=== PATIENT | female | born 1965 | race Hispanic/Latino ===

== ENCOUNTER 2021-05-22 16:17 | Emergency (ER) | payer OTHER | END 2021-05-22 17:54 | LOC: CSHERS 16:17 | DX: Z53.21 Procedure and treatment not carried out due to patient leaving prior to being seen by health care provider (principal) ==

== ENCOUNTER 2021-05-22 19:27 | Emergency (ER) | payer OTHER ==
[2021-05-22] MEDS ORDERED: Ketorolac Tromethamine 30 MG/ML VIAL ONE (20:43)
== END 2021-05-22 21:50 | disposition home or self-care (01) ==
LOC: CSHERS 19:27
DX: M25.512 Pain in left shoulder (principal); M25.522 Pain in left elbow; M25.561 Pain in right knee; M25.562 Pain in left knee; E11.9 Type 2 diabetes mellitus without complications; I10 Essential (primary) hypertension; J44.9 Chronic obstructive pulmonary disease, unspecified; F17.210 Nicotine dependence, cigarettes, uncomplicated; W19.XXXA Unspecified fall, initial encounter
CPT/HCPCS: 96372; J1885

== ENCOUNTER 2021-11-22 02:22 | Emergency (ER) | payer OTHER | END 2021-11-22 03:55 | disposition home or self-care (01) | LOC: CSHERS 02:22 | DX: S90.121A Contusion of right lesser toe(s) without damage to nail, initial encounter (principal); I11.0 Hypertensive heart disease with heart failure; I50.9 Heart failure, unspecified; E11.9 Type 2 diabetes mellitus without complications; J43.9 Emphysema, unspecified; F17.210 Nicotine dependence, cigarettes, uncomplicated; X58.XXXA Exposure to other specified factors, initial encounter ==

== ENCOUNTER 2022-04-15 13:02 | Outpatient (CLI) | payer OTHER | END 2022-04-15 13:03 | disposition home or self-care (01) | LOC: CSHCT 13:02 | PROVIDERS: ATTEND Otolaryngology Otolaryngic Allergy | DX: R59.1 Generalized enlarged lymph nodes (principal); M47.812 Spondylosis without myelopathy or radiculopathy, cervical region; M25.78 Osteophyte, vertebrae | CPT/HCPCS: 70491 ==

== ENCOUNTER 2022-11-21 05:17 | Emergency (ER) | payer OTHER, MEDICARE ==
[2022-11-21] MEDS ORDERED: fentaNYL 50 mcg/mL 1 mL Vial ONE (06:04)
[2022-11-21 06:31] LABS: #Eosinphils 1.1 10x3/uL (0.0-0.5); #Monocytes 0.4 10x3/uL (0.0-1.1); #Neutrophils 5.1 10x3/uL (1.5-8.4); %Basophils 0.5 % (0.0-2.0); %Eosinophils 13.4 % (0.0-6.0); %Lymphocytes 17.8 % (18.0-47.0); %Monocytes 5.2 % (0.0-10.0); %Neutrophils 62.5 % (40.0-75.0); Hematocrit 42.4 % (34.9-44.5); Hemoglobin 14.6 g/dL (12.0-15.5); Mean Corpuscular HGB CONC 34.4 g/dL (32.0-36.0); Mean Platelet Volume 10.9 fl (7.4-10.4); Platelet Count 120 10x3/uL (150-450); RBC Distribution Width 13.7 % (11.5-14.5); Red Blood Cell (RBC) Count 4.71 10x6/uL (3.90-5.03); White Blood Cell (WBC) Count 7.6 10x3/uL (3.5-10.5)
[2022-11-21 06:38] LABS: INR-International Normal Ratio 0.9; PTT 26.8 sec (22.0-33.0); Prothrombin Time 9.9 sec (9.5-12.1)
[2022-11-21 06:42] LABS: Anion Gap 15 mmol/L (10-20); BUN (Urea Nitrogen) 12 mg/dL (9.8-20.1); Calc. Creatinine Clearance 0 mL/min (70-130); Calcium 8.5 mg/dL (7.8-10.44); Carbon Dioxide 20 mmol/L (22-29); Chloride 107 mmol/L (98-107); Estimated GFR 91; Glucose 138 mg/dL (70-105); Potassium 3.8 mmol/L (3.5-5.1); Sodium 138 mmol/L (136-145)
[2022-11-21] MEDS ORDERED: Heparin 10,000 UNITS/ 10 ML VIAL SLOW IVP SCH (08:00)
== END 2022-11-21 08:07 | disposition left against medical advice (07) ==
LOC: CSHERS 05:17
DX: I77.1 Stricture of artery (principal); I11.0 Hypertensive heart disease with heart failure; I50.9 Heart failure, unspecified; E66.9 Obesity, unspecified; E11.9 Type 2 diabetes mellitus without complications; F17.210 Nicotine dependence, cigarettes, uncomplicated
CPT/HCPCS: 80048; 85025; 85610; 85730; 93923; 93971; J3010; J1644

== ENCOUNTER 2022-11-21 12:17 | Inpatient (IN) | payer OTHER ==
[2022-11-21] MEDS ORDERED: Heparin 25,000 units/D5W 500 ML ONE (12:58)
[2022-11-21] MEDS ORDERED: Heparin 10,000 UNITS/ 10 ML VIAL SLOW IVP SCH (13:15)
[2022-11-21] MEDS ORDERED: Ondansetron ODT 4 MG TAB PO PRN (13:58)
[2022-11-21] MEDS ORDERED: Nicotine 14 MG PATCH TD PRN (13:58)
[2022-11-21] MEDS ORDERED: Ondansetron PF 4 MG/2 ML Vial IVP PRN (13:58)
[2022-11-21] MEDS ORDERED: Electrolyte Replacement Protocol 1 EACH FS SCH (14:00)
[2022-11-21] MEDS ORDERED: Sodium Chloride 0.9% 1,000 ML IV SCH (14:00)
[2022-11-21] MEDS ORDERED: HYDROcodone/Acetaminophen 10/325 mg Tablet PO PRN (14:02)
[2022-11-21] MEDS ORDERED: Dextrose 5% in Water 1,000 ML IV PRN (14:02)
[2022-11-21] MEDS ORDERED: Glucagon 1 MG/ML KIT IM PRN (14:02)
[2022-11-21] MEDS ORDERED: Dextrose 50% Abboject 50 ML SYRINGE SLOW IVP PRN (14:02)
[2022-11-21] MEDS ORDERED: HumaLOG 300 UNITS/3 ML VIAL SC PRN ×2 (14:02)
[2022-11-21] MEDS ORDERED: Docusate 100 MG CAP PO PRN (14:07)
[2022-11-21] MEDS ORDERED: Ventolin HFA Inhaler 60 PUFF INHALER INH PRN (14:07)
[2022-11-21 15:08] VITALS: BMI 33.7
[2022-11-21] MEDS: fentaNYL 50 mcg/mL 1 mL Vial SLOW IVP PRN ×2 (15:25→23:39)
[2022-11-21] MEDS ORDERED: FLU VACC QS2023-24(6MOS UP)/PF 60 MCG/0.5 ML SYRINGE IM ONE (18:15)
[2022-11-21] MEDS ORDERED: Communication Order-Pharmacy FS SCH (19:00)
[2022-11-21 20:01] LABS: INR-International Normal Ratio 0.9; PTT 35.3 sec (22.0-33.0); Prothrombin Time 10.2 sec (9.5-12.1)
[2022-11-21] MEDS ORDERED: Atorvastatin Calcium 20 MG TAB PO SCH (21:00)
[2022-11-21] MEDS ORDERED: Isosorbide Mononitrate 30 MG ER.TAB PO SCH (21:00)
[2022-11-21] MEDS: Pregabalin 75 MG CAP PO SCH (21:20)
[2022-11-21] MEDS: TICAGRELOR 90 MG TABLET PO SCH (21:20)
[2022-11-21] MEDS: Famotidine 20 MG TAB PO SCH (21:20)
[2022-11-22] MEDS ORDERED: Heparin 25,000 units/D5W 500 ML IVPB SCH (00:15)
[2022-11-22] MEDS ORDERED: Heparin 10,000 UNITS/ 10 ML VIAL SLOW IVP SCH ×2 (00:15→05:30)
[2022-11-22 00:33] LABS: Hematocrit 41.4 % (34.9-44.5); Hemoglobin 14.2 g/dL (12.0-15.5); Platelet Count 124 10x3/uL (150-450)
[2022-11-22 04:53] LABS: #Eosinphils 0.9 10x3/uL (0.0-0.5); #Monocytes 0.7 10x3/uL (0.0-1.1); #Neutrophils 4.9 10x3/uL (1.5-8.4); %Basophils 0.5 % (0.0-2.0); %Eosinophils 10.5 % (0.0-6.0); %Lymphocytes 22.1 % (18.0-47.0); %Monocytes 7.8 % (0.0-10.0); %Neutrophils 57.8 % (40.0-75.0); Hematocrit 41.2 % (34.9-44.5); Hemoglobin 13.9 g/dL (12.0-15.5); Mean Corpuscular HGB CONC 33.7 g/dL (32.0-36.0); Mean Corpuscular Hemoglobin 30.3 pg (27.0-33.0); Mean Platelet Volume 10.7 fl (7.4-10.4); Platelet Count 122 10x3/uL (150-450); RBC Distribution Width 13.7 % (11.5-14.5); Red Blood Cell (RBC) Count 4.58 10x6/uL (3.90-5.03); White Blood Cell (WBC) Count 8.5 10x3/uL (3.5-10.5)
[2022-11-22 04:57] LABS: ALT (SGPT) 32 U/L (8-55); AST (SGOT) 51 U/L (5-34); Albumin 3.4 g/dL (3.5-5.0); Alkaline Phosphatase 76 U/L (40-110); Anion Gap 14 mmol/L (10-20); BUN (Urea Nitrogen) 8 mg/dL (9.8-20.1); Bilirubin, Total 0.5 mg/dL (0.2-1.2); Calc. Creatinine Clearance 139 mL/min (70-130); Calcium 8.5 mg/dL (7.8-10.44); Carbon Dioxide 21 mmol/L (22-29); Chloride 109 mmol/L (98-107); Estimated GFR 102; Globulin 2.6 g/dL (2.4-3.5); Glucose 105 mg/dL (70-105); Magnesium 2.3 mg/dL (1.6-2.6); Potassium 3.4 mmol/L (3.5-5.1); Sodium 141 mmol/L (136-145)
[2022-11-22] MEDS ORDERED: Heparin 25,000 units/D5W 500 ML IV SCH (05:30)
[2022-11-22] MEDS ORDERED: hydrALAZINE 20 MG/ML VIAL SLOW IVP PRN (05:48)
[2022-11-22] MEDS ORDERED: Potassium Chloride 20 MEQ TAB PO SCH (06:00)
[2022-11-22] MEDS: Pregabalin 75 MG CAP PO SCH (08:10)
[2022-11-22] MEDS: Famotidine 20 MG TAB PO SCH (08:10)
[2022-11-22] MEDS: TICAGRELOR 90 MG TABLET PO SCH (08:11)
[2022-11-22] MEDS ORDERED: Bivalirudin 250 MG VIAL ONE (08:32)
[2022-11-22] MEDS ORDERED: Lidocaine 1% (PF) 30 ML VIAL ONE (08:32)
[2022-11-22] MEDS ORDERED: Midazolam HCl 2 mg/2 ml Vial ONE ×2 (08:32→09:34)
[2022-11-22] MEDS ORDERED: fentaNYL 50 mcg/mL 1 mL Vial ONE ×2 (08:32→09:34)
[2022-11-22] MEDS ORDERED: Aspirin 81 mg Enteric Coated Tablet PO SCH (09:00)
[2022-11-22] MEDS ORDERED: TICAGRELOR 90 MG TABLET ONE (09:15)
[2022-11-22] MEDS ORDERED: Heparin 10,000 UNITS/ 10 ML VIAL ONE (09:36)
[2022-11-22] MEDS ORDERED: Sodium Chloride 0.9% 1,000 ML IV SCH (11:45)
[2022-11-22] MEDS ORDERED: HYDROcodone/Acetaminophen 10/325 mg Tablet PO PRN (13:15)
[2022-11-22 13:17] VITALS: BP 144/75; TEMP 97.8
[2022-11-22] MEDS ORDERED: Iopamidol 300 61% 100 ML VIAL FS ONE (13:43)
[2022-11-22] MEDS ORDERED: Rivaroxaban 2.5 MG TAB PO SCH ×2 (21:00)
== END 2022-11-22 15:13 | disposition home or self-care (01) | DRG 271 ==
LOC: CSHERS 12:17 → CSHTELE 13:35
PROVIDERS: ADMIT Internal Medicine; ATTEND Internal Medicine
PROC: B41D1ZZ Fluoroscopy of Aorta and Bilateral Lower Extremity Arteries using Low Osmolar Contrast (ICD-10-PCS; principal; 2022-11-22)
PROC: 04CL3ZZ Extirpation of Matter from Left Femoral Artery, Percutaneous Approach (ICD-10-PCS; 2022-11-22)
PROC: 047N3ZZ Dilation of Left Popliteal Artery, Percutaneous Approach (ICD-10-PCS; 2022-11-22)
PROC: 047S3ZZ Dilation of Left Posterior Tibial Artery, Percutaneous Approach (ICD-10-PCS; 2022-11-22)
PROC: 047L3ZZ Dilation of Left Femoral Artery, Percutaneous Approach (ICD-10-PCS; 2022-11-22)
PROC: 047L3DZ Dilation of Left Femoral Artery with Intraluminal Device, Percutaneous Approach (ICD-10-PCS; 2022-11-22)
PROC: B44GZZ3 Ultrasonography of Left Lower Extremity Arteries, Intravascular (ICD-10-PCS; 2022-11-22)
DX: T82.856A Stenosis of peripheral vascular stent, initial encounter (principal); I50.22 Chronic systolic (congestive) heart failure; E11.51 Type 2 diabetes mellitus with diabetic peripheral angiopathy without gangrene; I25.10 Atherosclerotic heart disease of native coronary artery without angina pectoris; F17.210 Nicotine dependence, cigarettes, uncomplicated; I11.0 Hypertensive heart disease with heart failure; I50.9 Heart failure, unspecified; F41.9 Anxiety disorder, unspecified; K21.9 Gastro-esophageal reflux disease without esophagitis; E11.40 Type 2 diabetes mellitus with diabetic neuropathy, unspecified; E78.1 Pure hyperglyceridemia; I25.5 Ischemic cardiomyopathy; E87.6 Hypokalemia; J44.9 Chronic obstructive pulmonary disease, unspecified; Y83.8 Other surgical procedures as the cause of abnormal reaction of the patient, or of later complication, without mention of misadventure at the time of the procedure; Z88.2 Allergy status to sulfonamides; Z88.5 Allergy status to narcotic agent; Z98.890 Other specified postprocedural states; Z90.710 Acquired absence of both cervix and uterus; Z95.820 Peripheral vascular angioplasty status with implants and grafts; Z90.49 Acquired absence of other specified parts of digestive tract; Z82.49 Family history of ischemic heart disease and other diseases of the circulatory system; Z71.6 Tobacco abuse counseling; Z83.3 Family history of diabetes mellitus; I25.2 Old myocardial infarction; Z79.899 Other long term (current) drug therapy; Z79.82 Long term (current) use of aspirin; Z79.84 Long term (current) use of oral hypoglycemic drugs; Z88.6 Allergy status to analgesic agent; I77.1 Stricture of artery; E66.9 Obesity, unspecified
CPT/HCPCS: 36415; 36416; 37184; 37224; 37228; 75710; 75736; 80048; 80053; 83735; 85025; 85347; 85610; 85730; 93923; 94760; 96365; 96374; 99152; 99153; C1725; C1753; C1757; C1760; C1769; C1876; C1887; J0360; J0583; J1644; J2001; J2250; J3010; J7050

== ENCOUNTER 2023-11-20 02:21 | Emergency (ER) | payer OTHER ==
[2023-11-20] MEDS ORDERED: Dexamethasone 10 MG/ML VIAL ONE (04:17)
[2023-11-20] MEDS ORDERED: Ibuprofen 200 MG TAB ONE (04:17)
[2023-11-20] MEDS ORDERED: Methocarbamol 500 MG TAB ONE (04:17)
== END 2023-11-20 05:46 | disposition left against medical advice (07) ==
LOC: CSHERS 02:21
DX: M54.31 Sciatica, right side (principal); E66.9 Obesity, unspecified; J42 Unspecified chronic bronchitis; J43.9 Emphysema, unspecified; I11.0 Hypertensive heart disease with heart failure; I50.9 Heart failure, unspecified; E11.9 Type 2 diabetes mellitus without complications; F17.210 Nicotine dependence, cigarettes, uncomplicated; I73.9 Peripheral vascular disease, unspecified; Z79.84 Long term (current) use of oral hypoglycemic drugs; Z79.51 Long term (current) use of inhaled steroids; Z79.899 Other long term (current) drug therapy
CPT/HCPCS: 96372; 99283; J1100

== ENCOUNTER 2023-12-20 08:48 | Outpatient (CLI) | payer OTHER | END 2023-12-20 08:49 | disposition home or self-care (01) | LOC: CSHMRI 08:48 | DX: M54.42 Lumbago with sciatica, left side (principal); M48.061 Spinal stenosis, lumbar region without neurogenic claudication | CPT/HCPCS: 72148 ==

== ENCOUNTER 2025-01-19 17:46 | Emergency (ER) | payer OTHER ==
[2025-01-20] MEDS ORDERED: Ketorolac Tromethamine 30 MG (1 mL) VIAL ONE (05:52)
== END 2025-01-19 19:08 ==
LOC: CSHERS 17:46
DX: Z53.21 Procedure and treatment not carried out due to patient leaving prior to being seen by health care provider (principal)

== ENCOUNTER 2025-01-20 05:01 | Emergency (ER) | payer OTHER | END 2025-01-20 06:49 | disposition home or self-care (01) | LOC: CSHERS 05:01 | DX: M79.675 Pain in left toe(s) (principal); I73.9 Peripheral vascular disease, unspecified; J44.9 Chronic obstructive pulmonary disease, unspecified; E11.9 Type 2 diabetes mellitus without complications; I11.0 Hypertensive heart disease with heart failure; I50.9 Heart failure, unspecified; F17.210 Nicotine dependence, cigarettes, uncomplicated; Z79.51 Long term (current) use of inhaled steroids; Z79.84 Long term (current) use of oral hypoglycemic drugs; Z79.899 Other long term (current) drug therapy | CPT/HCPCS: 96372; 99283 ==